=== PATIENT | male | born 1965 | race Caucasian/White ===

== ENCOUNTER 2018-09-09 15:32 | Outpatient (CLI) | payer OTHER ==
--- NOTE | 2018-09-09 16:11 | RAD ---
RIGHT SHOULDER THREE VIEWS: 09/09/18 HISTORY: Acute right shoulder pain. There are arthritic changes of the AC joint. There is no signs of fracture or dislocation. Minimal ar thritic changes of the glenohumeral joint space is seen. No joint space narrowing. IMPRESSION: Mild arthritic changes of the shoulder. POS: OFF
--- NOTE | 2018-09-09 16:13 | RAD ---
CERVICAL SPINE SERIES THREE VIEWS: 09/09/18 HISTORY: Neck pain, pain going down right arm. Vertebral bodies are normal in height. Osteophytic changes are seen at C5-6 with some mild disc narro wing. Facets are in normal alignment. Small osteophytes are seen at other disc levels but no signific ant disc space narrowing. IMPRESSION: Mild degenerative disc narrowing at the C5-6 level. POS: OFF
== END 2018-09-09 15:33 | disposition home or self-care (01) ==
LOC: BICRAD 15:32
PROVIDERS: ATTEND Family Medicine
DX: M25.511 Pain in right shoulder (principal); M54.2 Cervicalgia; M50.322 Other cervical disc degeneration at C5-C6 level; M19.011 Primary osteoarthritis, right shoulder
CPT/HCPCS: 72040

== ENCOUNTER 2018-10-04 08:54 | Outpatient (CLI) | payer OTHER ==
[~2018-10-04 08:54] MED LIST: EPINEPHrine 1 MG/ML AMP ONE; Gadobenate Dimeglumine 529 MG/1 ML (20ML VIAL) ONE; Iopamidol 300 61% 30 ML VIAL ONE; Lidocaine 1% PF 10 ML AMP ONE
--- NOTE | 2018-10-04 12:04 | MRI ---
EXAM: MR arthrogram right shoulder PROVIDED CLINICAL HISTORY: Right shoulder pain COMPARISON: None FINDINGS: There is high-grade partial thickness undersurface tearing involving the cranial one half of subscapu pasha tendon fibers. The components of the rotator cuff appear otherwise intact. There is complete disruption of the long head biceps tendon just distal to its glenoid origin. There is retraction of disrupted tendon to the level just inferior to the bicipital groove about 5.7 cm caudal to the superior margin of the humerus. Associated SLAP tear. No focal articular cartilage defe ct is apparent. Acromioclavicular joint osteoarthrosis is demonstrated with mild mass effect upon the subjacent supra spinatus. Rotator cuff muscular volume appears grossly preserved. No focal concerning regional marrow or muscular signal abnormality is evident. IMPRESSION: 1. High-grade partial-thickness undersurface tearing involving the cranial fibers of the subscapulari s tendon. 2. Complete disruption of the intra-articular long head biceps tendon with retraction as above. 3. SLAP tear. 4. Acromioclavicular joint osteoarthrosis.
--- NOTE | 2018-10-04 12:17 | RAD ---
EXAM: XR Shoulder Rt Arthrogram PROVIDED CLINICAL HISTORY: Right shoulder pain. Strain right rotator cuff capsule. COMPARISON: None. Fluoroscopy: Total fluoroscopy time is 0.6 minutes with total dose of 36.5 uGy centimeter squared TECHNIQUE: After informed consent was obtained, the patient was placed on the fluoroscopy table in supine positi on. The right shoulder was placed in external rotation. An area overlying the superior aspect right glenohumeral joint was marked, and the area was meticulously prepped and draped in usual sterile fash ion. The skin and subcutaneous tissues were infiltrated with buffered 1% lidocaine for local anesthesia. A 22-gauge spinal needle was advanced to the right glenohumeral joint. Small amount of co ntrast was injected demonstrating free flow of contrast away from the tip of the needle. Approximately 12 mL of a liquid measure initially consisting of MultiHance gadolinium contrast, Isovu e, lidocaine, and a small amount of epinephrine was instilled into the right glenohumeral joint. The needle was removed, and hemostasis was achieved with direct pressure. Dry sterile dressing was pl aced at puncture site. The patient tolerated the procedure well and without immediate complication. The patient was transpor alejandra to MRI for further imaging. 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 There is suggestion of subchondral cystic change at the superior aspect of the glenoid. The coracoclavicular and acromioclavicular distances are within paloma l limits. IMPRESSION: Technically successful right shoulder arthrogram. Please see MRI right shoulder performed after this exam for further details.
== END 2018-10-04 08:55 | disposition home or self-care (01) ==
LOC: RAD 08:54
PROVIDERS: ATTEND Pediatrics Sports Medicine
DX: S46.011A Strain of muscle(s) and tendon(s) of the rotator cuff of right shoulder, initial encounter (principal); M25.511 Pain in right shoulder; M19.011 Primary osteoarthritis, right shoulder
CPT/HCPCS: 23350; A9577; J0171; J2001; Q9967

== ENCOUNTER 2018-11-16 07:04 | Outpatient (CLI) | payer OTHER ==
[2018-11-16 09:32] LABS: #Eosinphils 0.2 thou/uL (0.0-0.7); #Lymphocytes 2.2 thou/uL (1.20-3.40); #Monocytes 0.5 thou/uL (0.11-0.59); #Neutrophils 3.1 thou/uL (1.40-6.50); %Basophils 0.6 % (0.0-1.0); %Eosinophils 2.8 % (0.0-10.0); %Lymphocytes 36.5 % (21.0-51.0); %Monocytes 8.3 % (0.0-10.0); %Neutrophils 51.9 % (42.0-75.0); Hemoglobin 14.9 g/dL (14.0-18.0); Mean Corpuscular HGB CONC 35.7 g/dL (32.0-36.0); Mean Corpuscular Hemoglobin 32.7 pg (27.0-31.0); Mean Corpuscular Volume 91.6 fL (78.0-98.0); Mean Platelet Volume 7.4 fL (7.4-10.4); Platelet Count 239 thou/uL (130-400); Red Blood Cell (RBC) Count 4.56 mill/uL (4.70-6.10); White Blood Cell (WBC) Count 5.9 thou/uL (4.8-10.8)
== END 2018-11-16 07:05 | disposition home or self-care (01) ==
LOC: LABBT 07:04
PROVIDERS: ATTEND Orthopaedic Surgery
DX: Z01.812 Encounter for preprocedural laboratory examination (principal); S46.111A Strain of muscle, fascia and tendon of long head of biceps, right arm, initial encounter; S43.81XA Sprain of other specified parts of right shoulder girdle, initial encounter
CPT/HCPCS: 85025

== ENCOUNTER 2018-11-17 08:53 | Day surgery (SDC) | payer OTHER ==
[2018-11-16 08:47] VITALS: BMI 33.2
[2018-11-17] MEDS ORDERED: Clindamycin/D5W 600 mg/50 ml Premix Bag ONE (10:21)
[2018-11-17] MEDS ORDERED: Midazolam HCl 2 mg/2 ml Vial ONE (10:34)
[2018-11-17] MEDS ORDERED: Fentanyl 100 MCG/2 ML VIAL ONE ×2 (10:34→11:35)
[2018-11-17] MEDS ORDERED: Promethazine HCl 25 MG/ML VIAL IM PRN (11:28)
[2018-11-17] MEDS ORDERED: Zolpidem Tartrate 5 MG TAB PO PRN (11:28)
[2018-11-17] MEDS ORDERED: Ondansetron PF 4 MG/2 ML Vial IVP PRN (11:28)
[2018-11-17] MEDS ORDERED: Ropivacaine 0.2% 550 ML 550 ML NERVE BLCK SCH (11:28)
[2018-11-17] MEDS ORDERED: traMADol HCl 50 MG TAB PO PRN ×2 (11:28)
[2018-11-17] MEDS ORDERED: HYDROcodone/Acetaminophen 10/325 mg Tablet PO PRN ×2 (11:28)
[2018-11-17] MEDS ORDERED: Ketorolac Tromethamine 30 MG/ML VIAL IVP SCH (12:00)
[2018-11-17] MEDS ORDERED: Phenylephrine HCL 10 MG/ML VIAL ONE (12:36)
[2018-11-17] MEDS ORDERED: Ropivacaine 0.5% HCl/PF (150 MG/30 ML VIAL) ONE (13:48)
[2018-11-17] MEDS ORDERED: Ropivacaine 0.2% HCl/PF (40 MG/20 ML VIAL) ONE (13:48)
[2018-11-17] MEDS ORDERED: ePHEDrine 50 MG/ML VIAL ONE (13:51)
[2018-11-17] MEDS ORDERED: Ketorolac Tromethamine 30 MG/ML VIAL ONE (13:51)
[2018-11-17] MEDS ORDERED: Rocuronium Bromide 10 MG/ML (10ML VIAL) ONE (13:51)
[2018-11-17] MEDS ORDERED: PROPOFOL 200 MG/20 ML VIAL ONE (13:51)
[2018-11-17] MEDS ORDERED: Lidocaine 1% PF 5 ML VIAL ONE (13:51)
[2018-11-17] MEDS ORDERED: Ondansetron PF 4 MG/2 ML Vial ONE ×2 (13:51→14:15)
[2018-11-17] MEDS ORDERED: Glycopyrrolate 0.2 MG/ML 5 ML SYRINGE ONE (13:51)
[2018-11-17] MEDS ORDERED: Dexamethasone 20 MG/5 ML VIAL ONE (13:51)
[2018-11-17] MEDS ORDERED: PHENYLEPHRINE-NS 100 MCG/ML 10 ML SYRINGE ONE (13:52)
[2018-11-18] MEDS ORDERED: DOPamine 400 MG/D5W 250 ML 250 ML ONE (09:02)
--- NOTE | 2018-11-18 09:40 | OP ---
DATE OF PROCEDURE: PREOPERATIVE DIAGNOSES: 1. High-grade undersurface tear subscapularis with intraarticular biceps rupture. 2. Acromioclavicular joint arthritis. POSTOPERATIVE DIAGNOSES: 1. High-grade undersurface tear subscapularis with intraarticular biceps rupture. 2. Acromioclavicular joint arthritis. PROCEDURES PERFORMED: 1. Right subscapularis repair. 2. Biceps tenodesis. RESIDENTIAL MORTGAGE UNDERWRITER: Chas Rutledge PA-C. ANESTHESIA: The patient received a general endotracheal intubation, interscalene block. ESTIMATED BLOOD LOSS: 75 mL. TOURNIQUET TIME: None. IMPLANTS: A 5.5 [employer] corkscrew and 8 x 9.5 SwiveLock. ANTIBIOTICS: 600 mg of clindamycin. COMPLICATIONS: None. HISTORY OF PRESENT ILLNESS: Mr. Solorzano is a 52-year-old male, presents with a couple of years of right shoulder pain. The patient had pain with overhead activities and popping. The patient had an MRI evidence of a subscapularis tear with biceps rupture. I discussed with him the risks and benefits of a right open subscapularis repair with a biceps tenodesis. I discussed the risks and benefits of surgery to include pain, scar, bleeding, infection, decreased range of motion and strength, nonunion, fracture above or below the implants, damage to vital structures, loss of life or limb, Matteo deformity, and other complications. The patient understood the risks and benefits of the procedure and elected to proceed. DESCRIPTION OF PROCEDURE: Time-out was performed designating the patient's right upper extremity as the operative site based on site, consents, and markings. After time-out, the right upper extremity was prepped and draped in sterile fashion. A deltopectoral incision was made. We came down and found the vessel. I was able to dissect down in between the pectoral and the deltoid, came down on top clavipectoral fascial layer. We found the subscapularis, able to find the biceps rupture in the distal aspect. We opened the sheath and pulled it into the wound. We moved proximally into the rotator interval and used the biceps groove tracking up falling into the interval to find undersurface tearing, which we debrided, debrided the bone as well as the tuberosity there. We placed a 5.5 corkscrew using an awl followed by tap. We then passed with a Scorpion Passer four passes to get good tissue medially. We then sewed those down. We then moved to the biceps tenodesis. We found a point within the groove inferiorly, passed a guidepin and drilled a 30. We used an 8 mm tenodesis screw. We passed our sutures of the double row equivalent laterally to help with compressing the cuff down and tenodesed the biceps into place. We oversewed those with an anchored screw. We tenodesed the biceps, cut those on top. We went back and closed our interval with a #1 Vicryl. We closed the top of that and it was watertight. We then washed, closed the deltopectoral interval with 0 Vicryl, closed the subcu with 2-0 and nataliia. The patient will be placed in a sling. Begin elbow, wrist, and hand motion. The patient will follow up in 10 to 12 days for staple removal. We will begin passive range of motion at that time. Job ID: [id number] [facility]
== END 2018-11-17 15:35 | disposition home or self-care (01) ==
LOC: SDC 08:53
PROVIDERS: ATTEND Orthopaedic Surgery
PROC: 0LQ10ZZ Repair Right Shoulder Tendon, Open Approach (ICD-10-PCS; principal; 2018-11-17)
PROC: 0LS30ZZ Reposition Right Upper Arm Tendon, Open Approach (ICD-10-PCS; principal; 2018-11-17)
DX: S43.81XA Sprain of other specified parts of right shoulder girdle, initial encounter (principal); S46.111A Strain of muscle, fascia and tendon of long head of biceps, right arm, initial encounter; E78.5 Hyperlipidemia, unspecified; M77.11 Lateral epicondylitis, right elbow; G89.18 Other acute postprocedural pain; Z79.899 Other long term (current) drug therapy; Z88.0 Allergy status to penicillin
CPT/HCPCS: A4306; C1713; J1100; J1885; J2001; J2250; J2370; J2405; J2704; J2795; J3010; J3490

== ENCOUNTER 2025-01-17 12:51 | Outpatient (CLI) | payer BC | END 2025-01-17 12:52 | disposition home or self-care (01) | LOC: BICRAD 12:51 | PROVIDERS: ATTEND Family Medicine | DX: M25.512 Pain in left shoulder (principal) ==